=== PATIENT | female | born 1980 | race Caucasian/White ===

== ENCOUNTER 2020-12-17 08:17 | Outpatient (CLI) | payer BC ==
[2020-12-17] MEDS ORDERED: Magnevist 469MG/ML 20 ML VIAL ONE (16:16)
== END 2020-12-17 08:18 | disposition home or self-care (01) ==
LOC: BICMRI 08:17
PROVIDERS: ATTEND Internal Medicine Gastroenterology
DX: R93.5 Abnormal findings on diagnostic imaging of other abdominal regions, including retroperitoneum (principal)
CPT/HCPCS: 74183